=== PATIENT | female | born 1940 | race Caucasian/White ===

== ENCOUNTER 2017-04-26 08:46 | Day surgery (SDC) | payer MEDICARE ==
[~2017-04-26 08:46] MED LIST: RINGERS SOLUTION,LACTATED 1,000 ML IV PRN
[2017-04-26] MEDS ORDERED: RINGERS SOLUTION,LACTATED 1,000 ML IV ONE (09:17)
--- OUTSIDE RECORDS SUMMARY | 2017-04-26 11:33 | XMS REPORT | Continuity of Care Document ---
:1940 Author Organization [facility] ([facility]) Address [address] [place] [address] Phone [phone] Care Team Providers Name Role Phone Trey Oliveira Primary Care Provider [phone] Source Comments This disclosure is being made pursuant to the Care Everywhere program, applicable federal and state laws, and may not contain all informaitonavailable regarding this patient.[facility] ([facility]) Active Allergies and Adverse Reactions No Known Allergies Current Medications Prescription Sig. Disp. Refills Start Date End Date Status CALCIUM CITRATE/VITAMIN Take by mouth 2 Active D3 (CITRACAL + D PO) times daily. ALENDRONATE 70 mg 12/25/2014 Active tablet ATORVASTATIN 10 mg 01/27/2015 Active tablet tamoxifen 20 mg tablet Take 1 tablet (20 90 tablet 11 02/20/2017 Active mg total) by mouth daily. Active Problems Problem Noted Date Malignant neoplasm of right breast 06/08/2015 Routine gynecological examination 09/30/2005 Most Recent Encounters Date Type Specialty Providers Description 02/20/2017 Refill Med Hematology and KarTomasz willson MD Dx: Malignant neoplasm Oncology of right female breast, unspecified site of breast (Primary Dx) Social History Tobacco Use Types Packs/Day Years Used Date Never Smoker Smokeless Tobacco: Never Used Alcohol Use Drinks/Week oz/Week Comments No Last Filed Vital Signs Vital Sign Reading Time Taken Blood Pressure 126/72 06/06/2016 10:47 AM CDT Pulse 64 06/06/2016 10:47 AM CDT Temperature 36.6 C (97.9 F) 06/06/2016 10:47 AM CDT Respiratory Rate 16 06/06/2016 10:47 AM CDT Height 1.745 m (5' 8.7") 10/26/2005 8:58 AM OPERATING ROOM REGISTERED NURSE Weight 64.592 kg (142 lb 6.4 oz) 06/06/2016 10:47 AM CDT Body Mass Index 21.21 06/06/2016 10:47 AM CDT Oxygen Saturation 95% 06/06/2016 10:47 AM CDT Plan of Care Health Maintenance Due Date Last Done Comments Hepatitis B Vaccine (1 of 3 1940 - Primary Series) Tdap Vaccine 1949 Td Vaccine 02/06/1956 Colonoscopy 1988 Zoster Vaccine 1998 Pneumococcal Vaccine (1 of 2 2003 - PCV13) Lipid Disorder Screening 08/01/2007 08/01/2002 Mammogram 10/12/2008 10/12/2007, Additional history exists 10/26/2005, 12/16/2003 Influenza Vaccine: Seasonal 06/27/2016 (#1) Osteoporosis Screening (DXA Completed 12/10/2002 Bone Density) Results from Last 3 Months Not on file
[2017-04-26] MEDS ORDERED: RINGERS SOLUTION,LACTATED 1,000 ML IV PRN (12:03)
[2017-04-26 13:33] VITALS: BP 159/88
--- NOTE | 2017-04-26 19:07 | OR ---
Operative Report - Dictated Report Narrative: OPERATIVE REPORT DATE OF OPERATION: 04/26/2017 PREOPERATIVE DIAGNOSIS: No recent dedicated colon studies POSTOPERATIVE DIAGNOSIS: Diverticulosis. Very redundant colon OPERATION: Colonoscopy SURGEON: Lincoln Oliveira MD ANESTHESIA: LULY Hernandez CRNA INDICATIONS FOR PROCEDURE: The patient is a 77-year-old female referred by Dr. Aly for colon surveillance. Her last colonoscopy was in 2006. There is no family history of colon cancer. The patient has a tendency to constipation. FINDINGS: Very redundant colon with technically difficult exam. Sigmoid diverticulosis NARRATIVE OF PROCEDURE: The patient was identified in the holding area, and prior to the administration of anesthetic, a multidisciplinary timeout was observed. With the patient in the left lateral position and after the administration of intravenous sedation, the perineum was inspected. There was no evidence of pilonidal disease or skin breakdown. The external appearance of the anus was normal. Sphincter tone was good. The flexible fiberoptic colonoscope was inserted into the rectum which was insufflated with air. The rectal mucosa and submucosal vascular pattern appeared normal, the prep was seen to be complete. The scope was advanced through the sigmoid colon which contained numerous large non-inflamed diverticular openings some of which were impacted with stool. The scope was advanced up the descending colon, and around the splenic flexure where the triangular haustral architecture of the transverse colon was seen. The scope was advanced across the transverse colon, around the hepatic flexure to the cecum, where the confluence of tenia and the ileocecal valve were identified. The mucosa at this level appeared normal. The scope was then slowly withdrawn in a circular fashion so that all aspects of colonic mucosa were inspected. The colon was very redundant in course requiring standard reduction maneuvers and external manual compression on the abdomen to reach the cecum. The haustral architecture appeared well preserved throughout with no evidence of external compression. The mucosa and submucosal vascular pattern appeared normal, specifically there was no gross evidence to suggest colitis or inflammatory bowel disease and no AV malformations were seen. The diverticulosis was moderate in degree and confined primarily to the sigmoid colon. No polyps were encountered. The scope was gradually withdrawn to the level of the rectum. As much insufflated air as possible was removed. The scope was withdrawn from the patient and the procedure terminated. The patient tolerated the anesthetic and procedure well without complication and was transferred back to the ambulatory surgery area awake and in stable condition. The patient remained stable throughout a period of postoperative observation. She denied abdominal discomfort, was able to tolerate by mouth intake, and was up without assistance. I shared the operative findings with the patient and she was given copies of the photographs which appear in the medical record. She was discharged home with instructions not to engage in hazardous activity today , but may resume normal activity tomorrow, and advance diet as tolerated. She is to continue those medications as listed in the history and physical exam. Reviewed and electronically signed
== END 2017-04-26 08:47 | disposition home or self-care (01) ==
LOC: AMB 08:46
PROVIDERS: ATTEND Surgery
PROC: 0DJD8ZZ Inspection of Lower Intestinal Tract, Via Natural or Artificial Opening Endoscopic (ICD-10-PCS; principal; 2017-04-26 10:50)
DX: Z12.11 Encounter for screening for malignant neoplasm of colon (principal); K57.30 Diverticulosis of large intestine without perforation or abscess without bleeding; E78.5 Hyperlipidemia, unspecified; M81.0 Age-related osteoporosis without current pathological fracture; Z68.20 Body mass index [BMI] 20.0-20.9, adult

== ENCOUNTER 2017-10-14 17:27 | Inpatient (IN) | payer MEDICARE ==
[2017-10-14] MEDS ORDERED: DILTIAZEM HCL 5 MG/ML VIAL IV ONE ×2 (17:37→17:48)
[2017-10-14] MEDS ORDERED: ASPIRIN 325 MG TABLET.DR PO ONE (17:38)
[2017-10-14] MEDS ORDERED: ASPIRIN 81 MG TAB.CHEW ONE (17:50)
[2017-10-14] MEDS ORDERED: ASPIRIN 81 MG TAB.CHEW PO ONE (17:51)
[2017-10-14 17:55] LABS: Hematocrit 38.9 % (37.0-47.0); Mean Cell Volume 92.4 fl (78-100); Mean Corpuscular Hemoglobin 30.9 pg (27-31); Mean Corpuscular Hgb Conc 33.4 g/dl (32-36); Mean Platelet Volume 9.3 fl (6.0-9.5); Neutrophil # 3.8 K/mm3 (1.3-6.0); Neutrophil % 61.5 % (42-75.0); Platelet Count 225 K/mm3 (150-450); Red Blood Count 4.21 M/mm3 (4.2-5.4); Red Cell Distribution Width 12.7 % (11.5-14.0); White Blood Count 6.1 K/mm3 (4.0-10.5)
[2017-10-14] MEDS: DILTIAZEM HCL 125 MG in DEXTROSE 5 % IN WATER 100 ML IV PRN ×2 (18:00)
[2017-10-14 18:17] LABS: BUN/Creatinine Ratio 19.2 (9.0-21.6)
[2017-10-14 18:18] LABS: Albumin * 3.1 gm/dl (3.4-5.0); Anion Gap 13.5 mmol/L (6.8-13.8); Bilirubin, Total 0.2 mg/dL (0.0-1.1); Ca. Corrected For Albumin 8.6 mg/dL (8.4-10.2); Calcium * 8.2 mg/dL (7.9-10.9); Carbon Dioxide 26.7 mmol/L (24-32.6); Magnesium 2.1 mg/dL (1.2-2.8); Potassium 4.2 mmol/L (3.4-4.6); TSH * 2.071 uIU/mL (0.358-3.74); Total Protein 5.9 gm/dL (6.2-8.2); Troponin I 0.036 ng/ml (0.00-0.10)
[2017-10-14] MEDS ORDERED: FUROSEMIDE 10 MG/ML VIAL IV ONE (18:53)
[2017-10-14] MEDS ORDERED: FUROSEMIDE 10 MG/ML VIAL ONE (18:56)
--- NOTE | 2017-10-14 19:43 | ERNOTE ---
Dyspnea - Date Date of Service: 10/14/17 - General Presenting Symptoms: shortness of breath Time Seen by Provider: 10/14/17 17:32 Source: patient Exam Limitations: no limitations - Immun/Allergies/Home Medications Immunizations: IMMUNIZATION HX Immunizations Up to Date No History of Influenza Vaccine No Hx Pneumococcal Vaccination No Allergies/Adverse Reactions: Allergies No Known Allergies Allergy (Verified 10/14/17 17:48) Home Medications: HOME MEDICATIONS Alendronate Sodium [Fosamax] 70 mg PO Q7D #0 tablet 06/27/14 [Last Taken Unknown ] Cholecalciferol (Vitamin D3) [Vitamin D3] 2,000 unit PO DAILY 03/12/15 [Last Taken Unknown] Glucosam/Chondr/Collagn/Hyalur [Glucosamine & Chondroitin Cap] 1 cap PO DAILY [Last Taken Unknown] Magnesium 250 mg PO DAILY 03/12/15 [Last Taken Unknown] Tamoxifen Citrate 20 mg PO DAILY 01/16/16 [Last Taken Unknown] Aspirin [Aspirin EC] 81 mg PO DAILY 04/04/17 [Last Taken Unknown] Nutrition Shake 12 oz PO DAILY 04/04/17 [Last Taken Unknown] - History of Present Illness Narrative: Patient presents to the ED for SOB. She had been fatigued for a few days. Last night she noticed she was feeling SOB. She has noted SOB with exertion and even at rest since then. no chest pain. She had never had anything like this before so she came to the ED. No calf pain or leg swelling. no fever. Mild cough. She does not not feel palpitations but feels like it is herd for her to breath. Severity: moderate Initiating event: Reports: none Frequency of episodes: Reports: no prior episodes Modifying Factors - (Improves): Reports: nothing Modifying Factors (Worsens): Reports: activity Associated Symptoms-Dyspnea: Reports: cough. Denies: fever/chills, chest pain/ discomfort, palpitations, leg/calf pain Prior Treatment: Denies: recently seen Review of Systems - Review of Systems Constitutional: Absent: fever Respiratory: Present: shortness of breath Cardiology: Absent: palpitations Gastrointestinal/Abdominal: Absent: abdominal pain Genitourinary: Absent: dysuria All Other Systems: All systems neg except as marked - Patient's Past Medical History Patient History - Medical: Anxiety, GERD, Glaucoma, Osteoporosis Patient History - Cardiac/Respiratory: No pertinent hx Patient History - Cancer: Breast, Melanoma, Surgical Treatment Patient History - Surgical Procedures: Cataracts, Colonoscopy, D & C, EGD, T & A , Other Patient History - Other: None LMP (females 10-50): post - Family History Brother Family History - Medical: Other Family History - Cardiac/Respiratory: No pertinent hx Family History - Cancer: Esophageal Father Family History - Medical: , No pertinent hx Family History - Cardiac/Respiratory: No pertinent hx Family History - Cancer: Bone, Metatastic, Prostate Mother Family History - Medical: , Alzheimer's Disease Family History - Cardiac/Respiratory: No pertinent hx Family History - Cancer: Breast Sister Family History - Medical: Other Family History - Cardiac/Respiratory: No pertinent hx Family History - Cancer: No pertinent family hx - Social History Living Situations: home Abuse History: No History of abuse Psych History: No pertinent hx Smoking Status: Never smoker Alcohol Use: none Drug Use: none - Immunizations Immunizations Up to Date: No Hx Pneumococcal Vaccination: No History of Influenza Vaccine: No Physical Exam - Physical Exam General Appearance: Present: alert, no apparent distress Head Exam: Present: normal inspection, no evidence of injury Eye Exam: Normal inspection: bilateral, PERRL: bilateral Ears, Nose, Throat: Present: normal ENT inspection Neck: Present: normal inspection Respiratory: Present: no respiratory distress, no accessory muscle use, crackles , rales, other - in the bases Cardiovascular/Chest: Present: normal peripheral pulses, tachycardia, irregularly irregular Gastrointestinal/Abdominal: Present: normal bowel sounds, nontender, nondistended, soft Back Exam: Present: normal range of motion Extremity Exam: Present: normal inspection, non-tender, other - no findings of DVT Neurological Exam: Present: alert, normal mood/affect, no motor/sensory deficits Skin Exam: Present: normal color, warm/dry ED Progress - Results and Orders Patient's Lab Results:: I have reviewed the patient's lab results. - Vital Signs Patient's Vital Signs:: I have reviewed the patient's vital signs. Vital Signs: Vital Signs 10/14/17 10/14/17 10/14/17 17:30 17:49 17:57 Temperature 37.1 C Pulse Rate 155 H 157 H 113 H Respiratory 26 H 24 H Rate Blood Pressure 151/79 151/79 154/98 O2 Sat by Pulse 90 88 L Oximetry 10/14/17 10/14/17 10/14/17 18:00 18:06 18:16 Temperature Pulse Rate 148 H 126 H 130 H Respiratory 20 20 Rate Blood Pressure 154/98 137/89 117/90 O2 Sat by Pulse 91 91 Oximetry 10/14/17 10/14/17 10/14/17 18:25 18:28 18:37 Temperature Pulse Rate 158 H 136 H 144 H Respiratory 22 H 18 Rate Blood Pressure 115/82 123/81 O2 Sat by Pulse 93 92 Oximetry 10/14/17 10/14/17 10/14/17 18:45 18:55 18:59 Temperature Pulse Rate 133 H 124 H 132 H Respiratory 18 20 Rate Blood Pressure 135/81 113/78 113/78 O2 Sat by Pulse 92 91 Oximetry 10/14/17 10/14/17 19:06 19:17 Temperature Pulse Rate 130 H 133 H Respiratory 16 18 Rate Blood Pressure 120/84 123/77 O2 Sat by Pulse 92 92 Oximetry - EKG EKG: atrial fibrillation EKG read: Interp. by me EKG Comments: A fib RVR. Non-specific ST/T wave changes, no STEMI - X-Ray X-Ray #1 Interpretation: Interp. by me X-ray Comments: I reviewed official radiology report - Progress/Reassessment Chief Complaint: Dyspnea Progress Note-Subjective: 10/14/17 19:41 IV cardizem and IV cardizem drip initiated. IV lasix given. D/W Graham who was solution designer for hospitalist, she saw the patient in the ED and patient will be admitted. 10/14/17 19:42 Patient agreeable. Departure Clinical Impression: Atrial fibrillation with RVR, CHF (congestive heart failure) - Departure Disposition: [facility] Condition: Stable
--- NOTE | 2017-10-14 20:02 | HP ---
Chief Complaint - Chief Complaint Date of Service: 10/14/17 Time of Service: 20:02 Chief Complaint: " Could not breath well at night". Source of HPI- Pt; reliable , ERP provider. History of Present Illness: Mrs. Strong is a 77-yr-old WF pt of Dr. Elina Aly with a PMH of: Anxiety, Breast Ca, Glaucoma, HLD & Osteoporosis. Pt states the for the last 1 week, she has felt that she cannot breath during sleep. She reports also feeling tired within the 1 week and feels like she 'has to take a nap all the time, even without being physically active during the day.' Last night she could barely sleep due to inability to catch her breath and finally chose to come to the ED. She states that she has a lot more difficulty sleeping on her back. She denies associated symptoms of coughing, chest pain, and palpitations and SUAZO. She also denies fever and chills.At the ED, the CXR showed pulmonary vascular congestion concerning for CHF, along with Bilat. Pleural effusions. Laboratory studies were mostly unremarkable except for BNP of 4705. The ECG showed A-fib with RVR in 150s and was given Diliazem IV 20 mg & the drip was initiated at the ED which controlled her HR to 130s. She required 02 supplementation due to POX of 88% RA. Physical exam reveals Rales on Robert. Bases and BLE peripheral edema of 1-2 +. She diuresed 400ml with Lasix 40 mg IV at the ED. Pt will need to need admitted inpatient due to: New Onset A-fib with symptoms of Heart Failure and hypoxia & Bilateral pleural effusion. - Patient's Past Medical History Patient History - Medical: Anxiety, GERD, Glaucoma, Osteoporosis Patient History - Cardiac/Respiratory: No pertinent hx Patient History - Cancer: Breast, Melanoma, Surgical Treatment Patient History - Surgical Procedures: Cataracts, Colonoscopy, D & C, EGD, T & A , Other Patient History - Other: None LMP (females 10-50): post - Family History Brother Family History - Medical: Other Family History - Cardiac/Respiratory: No pertinent hx Family History - Cancer: Esophageal Father Family History - Medical: , No pertinent hx Family History - Cardiac/Respiratory: No pertinent hx Family History - Cancer: Bone, Metatastic, Prostate Mother Family History - Medical: , Alzheimer's Disease Family History - Cardiac/Respiratory: No pertinent hx Family History - Cancer: Breast Sister Family History - Medical: Other Family History - Cardiac/Respiratory: No pertinent hx Family History - Cancer: No pertinent family hx - Social History Living Situations: home Abuse History: No History of abuse Psych History: No pertinent hx Smoking Status: Never smoker Alcohol Use: none Drug Use: none - Immunizations Immunizations Up to Date: No Hx Pneumococcal Vaccination: No History of Influenza Vaccine: No Review Of Systems (GEN) - Review of Systems Generalized/Overall Review: Present: Weakness. Absent: Chills, Fever, Malaise EENTM: Absent: Eye Pain, Blurred Vision Respiratory: Present: Orthopnea. Absent: Cough, Shortness of Breath, Stridor Cardiac: Present: Edema. Absent: Chest Pain, Palpitations, Syncope Abdominal: Absent: Nausea, Vomiting, Hematemesis, Constipation Genitourinary: Absent: Burning, Itching, Urgency Musculoskeletal: Absent: Joint Pain, Back Pain, Joint Swelling Neurological: Absent: Headache, Anxiety, Depressed Skin: Absent: Dryness, Lesions, Lumps, Change in Color Endocrine: Absent: Intolerance to Cold Misc: All systems neg except as marked Immunizations: IMMUNIZATION HX Immunizations Up to Date No History of Influenza Vaccine No Hx Pneumococcal Vaccination No Allergies/Adverse Reactions: Allergies Allergy/AdvReac Type Severity Reaction Status Date / Time No Known Allergies Allergy Verified 10/14/17 17:48 Home Medications: HOME MEDICATIONS Alendronate Sodium [Fosamax] 70 mg PO Q7D #0 tablet 06/27/14 [Last Taken Unknown ] Cholecalciferol (Vitamin D3) [Vitamin D3] 2,000 unit PO DAILY 03/12/15 [Last Taken Unknown] Glucosam/Chondr/Collagn/Hyalur [Glucosamine & Chondroitin Cap] 1 cap PO DAILY [Last Taken Unknown] Magnesium 250 mg PO DAILY 03/12/15 [Last Taken Unknown] Tamoxifen Citrate 20 mg PO DAILY 01/16/16 [Last Taken Unknown] Aspirin [Aspirin EC] 81 mg PO DAILY 04/04/17 [Last Taken Unknown] Nutrition Shake 12 oz PO DAILY 04/04/17 [Last Taken Unknown] Exam - Exam Vital Signs: Vital Signs - Last Taken Temp 37.1 C 10/14/17 19:45 Pulse 148 H 10/14/17 19:45 Resp 20 10/14/17 19:45 BP 130/91 10/14/17 19:45 Pulse Ox 94 10/14/17 19:45 Constitutional: Present: Alert, Oriented x3, Cooperative, No distress ENT Exam: Present: normal ENT inspection, dry mucous membranes Eye Exam: bilateral eye: normal inspection, PERRL Neck: Present: non-tender, full range of motion, supple Back Exam: Present: normal inspection, no CVA tenderness Breasts: Present: Exam deferred Respiratory: Present: rales - Robert. Bases Cardiovascular/Chest: Present: no murmur, irregularly irregular Abdomen: Present: Normal bowel sounds, soft, nontender /Rectal: Present: Exam deferred Extremity: Present: normal range of motion, pedal edema Skin Exam: Present: warm/dry, no cyanosis Lymphatic: Present: no adenopathy Neurologic: Present: alert, normal mood/affect, oriented x 3 Appearance: Present: appropriate appearance, appropriate insight Eye contact: Present: cooperative, good eye contact, normal speech Thoughts: Present: normal thought pattern, no apparent hallucination Diagnostic Studies: Laboratory Results WBC 6.1 K/mm3 (4.0-10.5) 10/14/17 17:43 RBC 4.21 M/mm3 (4.2-5.4) 10/14/17 17:43 Hgb 13.0 gm/dL (12.5-16.0) 10/14/17 17:43 Hct 38.9 % (37.0-47.0) 10/14/17 17:43 MCV 92.4 fl (78-100) 10/14/17 17:43 MCH 30.9 pg (27-31) 10/14/17 17:43 MCHC 33.4 g/dl (32-36) 10/14/17 17:43 RDW 12.7 % (11.5-14.0) 10/14/17 17:43 Plt Count 225 K/mm3 (150-450) 10/14/17 17:43 MPV 9.3 fl (6.0-9.5) 10/14/17 17:43 Immature Gran % (Auto) 0.30 % (0.001-0.429) 10/14/17 17:43 Immature Gran # (Auto) 0.02 K/mm3 (0.000-0.0310) 10/14/17 17:43 Neutrophils % 61.5 % (42-75.0) 10/14/17 17:43 Lymphocytes % 23.5 % (20-51) 10/14/17 17:43 Monocytes % 10.9 % (0.0-9) H 10/14/17 17:43 Eosinophils % 3.1 % (0.0-3.0) H 10/14/17 17:43 Basophils % 0.7 % (0.0-1.0) 10/14/17 17:43 Nucleated RBC % 0.0 k/mm3 (0-1) 10/14/17 17:43 Neutrophils # 3.8 K/mm3 (1.3-6.0) 10/14/17 17:43 Lymphocytes # 1.4 k/mm3 (1.5-3.5) L 10/14/17 17:43 Monocytes # 0.7 k/mm3 (0.0-1.0) 10/14/17 17:43 Eosinophils # 0.2 k/mm3 (0.0-0.7) 10/14/17 17:43 Absolute Basophils 0.0 k/mm3 (0.0-0.1) 10/14/17 17:43 Sodium 144 mmol/L (132-142) H 10/14/17 17:43 Plasma Sodium 144 mmol/L (130-142) H 10/14/17 17:43 Potassium 4.2 mmol/L (3.4-4.6) 10/14/17 17:43 Chloride 108 mmol/L (97-106) H 10/14/17 17:43 Carbon Dioxide 26.7 mmol/L (24-32.6) 10/14/17 17:43 Anion Gap 13.5 mmol/L (6.8-13.8) 10/14/17 17:43 BUN 19 mg/dL (3-23) 10/14/17 17:43 Creatinine 0.99 mg/dL (0.4-1.4) 10/14/17 17:43 Est GFR (Non-Af Amer) 58 mL/min (60-130) L D 10/14/17 17:43 BUN/Creatinine Ratio 19.2 (9.0-21.6) 10/14/17 17:43 Random Glucose 97 mg/dL (70-110) 10/14/17 17:43 Calcium 8.2 mg/dL (7.9-10.9) 10/14/17 17:43 Calcium Adj for Albumin 8.6 mg/dL (8.4-10.2) 10/14/17 17:43 Magnesium 2.1 mg/dL (1.2-2.8) 10/14/17 17:43 Total Bilirubin 0.2 mg/dL (0.0-1.1) 10/14/17 17:43 AST 27 U/L (0-48) 10/14/17 17:43 ALT 30 U/L (19-67) 10/14/17 17:43 Alkaline Phosphatase 45 U/L (50-170) L 10/14/17 17:43 Troponin I 0.036 ng/ml (0.00-0.10) 10/14/17 17:43 B-Natriuretic Peptide 4705 pg/mL (5-550) H 10/14/17 17:43 Total Protein 5.9 gm/dL (6.2-8.2) L 10/14/17 17:43 Albumin 3.1 gm/dl (3.4-5.0) L 10/14/17 17:43 TSH 2.071 uIU/mL (0.358-3.74) 10/14/17 17:43 Assessment/Plan - Assessment/Plan (1) New onset a-fib Assessment: Pt presented with A-fib with unknown duration. Noted to have RVR in 150s and diltiazem 20mg and gtt initiated at the ED which controlled HR to the 130s. Will continue with the drip for a target HR of <100-110. Will be admitted under closed monitoring unit. Add digoxin 0.25mg q hours. CXR shows normal cardiac size. Will need an Echocardiogram to check to cardiac abnormalities. Plan to do this on Monday. Will need oral anticoagulation at discharge. According to CHADS2 Score, she has an intermediate risk for a thromboembolic event and 4 % risk if no coumadin. Is covered for now with Heparin for VTE prophylaxis. Problem: Acute (2) Pleural effusion Assessment: Has Robert. Pleural effusion on CXR. likely brought for by CHF. Will treat conservatively with diuretics. Problem: Acute (3) Congestive heart failure Assessment: Has clinical signs of CHF: increased vascular congestion on CXR, elevated BNP,& Peripheral Edema. Will continue diuresing with Lasix. Plan for Echo on Monday. Monitor electrolytes and fluid volume status and will determine daily lasix dose. Problem: Suspected Qualifiers: Congestive heart failure type: diastolic (4) Anxiety Problem: Chronic (5) Osteoporosis Assessment: Stable- Alendronate. Problem: Chronic (6) Breast CA Assessment: Stable - On tamoxifen Problem: Chronic
[2017-10-14] MEDS: DIGOXIN 0.25 MG/ML AMPUL IV SCH (21:13)
[2017-10-14] MEDS: HEPARIN SODIUM,PORCINE 5,000 UNITS/ML VIAL SC SCH (22:34)
--- NOTE | 2017-10-14 22:56 | PN ---
Progess Note - Interim Narrative: 10/14/17 22:47 India Strong is a 77-year-old WF with a history of RT lumpectomy for breast cancer[2015], malignant melanoma [right lower leg-2008], osteoporosis, anxiety, glaucoma who came into the ER for evaluation of SOB and difficulty in breathing which was gradually worsening for the last 2 days. She was found to be in CHF and had new onset A. fib with RVR with a rate between 140-160/m. Patient was started on diltiazem drip, IV Lanoxin and given furosemide 40 mg IV in the ER and admitted for further care and treatment. Significant labs: BNP 4705; troponin I 0.036, GFR 58. EKG A. fib with RVR with nonspecific ST and T wave changes. CXR: "Correlate for CHF/fluid overload with bilateral pleural effusions and basilar consolidation felt to represent atelectasis. Clinically exclude pneumonia. There is diffuse parenchymal scarring. No pneumothorax. Scoliosis present. DJD and decreased bony mineralization. Discussed case with Anita Willett. Please see detailed H&P to be done by Anita Willett[[employer], hospitalist].
[2017-10-15] MEDS: DIGOXIN 0.25 MG/ML AMPUL IV SCH ×2 (02:22→07:24)
[2017-10-15] MEDS: DILTIAZEM HCL 125 MG in DEXTROSE 5 % IN WATER 100 ML IV PRN ×2 (02:45)
[2017-10-15 06:09] LABS: Albumin * 2.8 gm/dl (3.4-5.0); Anion Gap 8.3 mmol/L (6.8-13.8); BUN/Creatinine Ratio 18.8 (9.0-21.6); Bilirubin, Total 0.4 mg/dL (0.0-1.1); Ca. Corrected For Albumin 8.3 mg/dL (8.4-10.2); Calcium * 7.7 mg/dL (7.9-10.9); Carbon Dioxide 29.2 mmol/L (24-32.6); Potassium 3.5 mmol/L (3.4-4.6); Total Protein 5.6 gm/dL (6.2-8.2)
--- NOTE | 2017-10-15 06:37 | PN ---
Subjective - Date and Time Seen Date: 10/15/17 Time: 06:31 Subjective Narrative: Pt seen this am. States she felt a lot better with her breathing during the night. Has been weaned off Oxygen from 3 L to RA. Diuresed about 1750ml with Lasix 40mg IV. Still in a a-fib and HR was controlled to the 120s with the Diltiazem. Objective - Vitals Vitals: Last Vital Signs Temp 36.5 C 10/15/17 06:27 Pulse 106 H 10/15/17 06:27 Resp 18 10/15/17 06:27 BP 110/62 10/15/17 06:27 Pulse Ox 91 10/15/17 06:27 - Abnormal Lab Findings Abnormal Lab Findings: Abnormal Lab Results 10/15/17 Range/Units 05:40 Chloride 108 H (97-106) mmol/L Calcium 7.7 L (7.9-10.9) mg/dL Calcium Adj for Albumin 8.3 L (8.4-10.2) mg/dL Alkaline Phosphatase 43 L (50-170) U/L Total Protein 5.6 L (6.2-8.2) gm/dL Albumin 2.8 L (3.4-5.0) gm/dl - Exam Constitutional: Present: Alert, Oriented x3, Cooperative, No distress ENT Exam: Present: normal ENT inspection Neck: Present: non-tender, full range of motion Breasts: Present: Exam deferred Respiratory: Present: lungs clear, No rales Cardiovascular/Chest: Present: no edema, irregularly irregular Abdomen: Present: Normal bowel sounds, soft, nontender /Rectal: Present: Exam deferred Extremity: Present: normal range of motion Skin Exam: Present: warm/dry, no cyanosis Lymphatic: Present: no adenopathy Neurologic: Present: alert, normal mood/affect, oriented x 3 Appearance: Present: appropriate appearance, appropriate insight Eye contact: Present: cooperative, good eye contact, normal speech Thoughts: Present: normal thought pattern, no apparent hallucination Assessment/Plan - Problems/Diagnosis (1) New onset a-fib Problem: Acute Narrative: Pt presented with A-fib with unknown duration. Noted to have RVR in 150s and diltiazem 20mg and gtt initiated at the ED which controlled HR to the 130s. Will continue with the drip for a target HR of <100-110. Will be admitted under closed monitoring unit. Add digoxin 0.25mg q hours. CXR shows normal cardiac size. Will need an Echocardiogram to check to cardiac abnormalities. Plan to do this on Monday. Will need oral anticoagulation at discharge. According to CHADS2 Score, she has an intermediate risk for a thromboembolic event and 4 % risk if no coumadin. Is covered for now with Heparin for VTE prophylaxis. (2) Pleural effusion Problem: Acute Narrative: Has Robert. Pleural effusion on CXR. likely brought for by CHF. Will treat conservatively with diuretics. (3) Congestive heart failure Problem: Suspected Qualifiers: Congestive heart failure type: diastolic Narrative: Has clinical signs of CHF: increased vascular congestion on CXR, elevated BNP,& Peripheral Edema. Will continue diuresing with Lasix. Plan for Echo on Monday. Monitor electrolytes and fluid volume status and will determine daily lasix dose. (4) Anxiety Problem: Chronic (5) Osteoporosis Problem: Chronic (6) Breast CA Problem: Chronic
[2017-10-15] MEDS: ASPIRIN 81 MG TABLET.DR PO SCH (08:30)
[2017-10-15] MEDS: MAGNESIUM OXIDE 400 MG TABLET PO SCH (08:30)
[2017-10-15] MEDS: TAMOXIFEN CITRATE 10 MG TABLET PO SCH (08:31)
[2017-10-15] MEDS: [UNRECOGNIZED DRUG - OTHER] PO SCH (08:31)
[2017-10-15] MEDS: CHOLECALCIFEROL 1,000 UNIT CAPSULE PO SCH (08:31)
[2017-10-15] MEDS: CHONDR PO SCH (08:40)
[2017-10-15] MEDS: GLUCOSAM PO SCH (08:40)
[2017-10-15] MEDS: HYALUR PO SCH (08:40)
[2017-10-15] MEDS: [UNRECOGNIZED DRUG - OTHER] PO SCH (08:40)
[2017-10-15] MEDS ORDERED: AMIODARONE HCL 150 MG in DEXTROSE 5 % IN WATER 100 ML IV ONE ×2 (09:00)
[2017-10-15] MEDS ORDERED: FUROSEMIDE 10 MG/ML VIAL IV SCH (09:00)
[2017-10-15] MEDS: AMIODARONE HCL 900 MG in DEXTROSE 5 % IN WATER 500 ML IV SCH ×2 (09:28)
[2017-10-15] MEDS: HEPARIN SODIUM,PORCINE 5,000 UNITS/ML VIAL SC SCH ×2 (10:39→21:12)
[2017-10-15] MEDS: AMIODARONE HCL 200 MG TABLET PO SCH (13:56)
[2017-10-15] MEDS: POTASSIUM CHLORIDE 20 MEQ TABLET.SA PO SCH ×2 (13:57→16:34)
[2017-10-15] MEDS: WARFARIN SODIUM 5 MG TABLET PO SCH ×2 (16:34→17:23)
[2017-10-16] MEDS: AMIODARONE HCL 200 MG TABLET PO SCH (08:11)
[2017-10-16] MEDS: CHONDR PO SCH (08:12)
[2017-10-16] MEDS: ASPIRIN 81 MG TABLET.DR PO SCH (08:12)
[2017-10-16] MEDS: TAMOXIFEN CITRATE 10 MG TABLET PO SCH (08:12)
[2017-10-16] MEDS: MAGNESIUM OXIDE 400 MG TABLET PO SCH (08:12)
[2017-10-16] MEDS: GLUCOSAM PO SCH (08:12)
[2017-10-16] MEDS: HYALUR PO SCH (08:12)
[2017-10-16] MEDS: CHOLECALCIFEROL 1,000 UNIT CAPSULE PO SCH (08:12)
[2017-10-16] MEDS: [UNRECOGNIZED DRUG - OTHER] PO SCH (08:12)
[2017-10-16] MEDS ORDERED: AMIODARONE HCL 200 MG TABLET PO ONE (08:42)
[2017-10-16] MEDS: AMIODARONE HCL 900 MG in DEXTROSE 5 % IN WATER 500 ML IV SCH ×2 (09:42)
[2017-10-16] MEDS: HEPARIN SODIUM,PORCINE 5,000 UNITS/ML VIAL SC SCH (10:02)
[2017-10-16] MEDS: METOPROLOL TARTRATE 25 MG TABLET PO SCH ×2 (10:15→17:23)
[2017-10-16] MEDS: DILTIAZEM HCL 30 MG TABLET PO SCH ×2 (10:15→16:15)
[2017-10-16 12:03] LABS: Prothrombin Time (Patient) 10.3 Seconds (9.0-11.0)
[2017-10-16 12:11] LABS: INR 1.03 INR (0.90-1.10)
[2017-10-16] MEDS: [UNRECOGNIZED DRUG - OTHER] PO SCH (12:27)
[2017-10-16 15:30] VITALS: BP 122/75
[2017-10-16] MEDS: WARFARIN SODIUM 5 MG TABLET PO SCH (16:15)
--- NOTE | 2017-10-16 18:00 | DS ---
(1) Atrial fibrillation with RVR Problem: Acute (2) CHF (congestive heart failure) Problem: Acute Qualifiers: Congestive heart failure type: diastolic Congestive heart failure chronicity: acute Qualified Code(s): I50.31 - Acute diastolic (congestive) heart failure (3) Anxiety Problem: Chronic (4) Breast CA Diagnosis(s): S/P RT lumpectomy. Problem: Chronic Qualifiers: Patient sex: female Laterality: right (5) Osteoporosis Problem: Chronic Description of Stay: DATE OF ADMISSION: 10/14/17. DATE OF DISCHARGE: 10/16/17. DIAGNOSTICS: 2-D ECHOCARDIOGRAM. 10/16/17. DISCHARGE SUMMARY: India Strong is a 77-year-old WF with a history of RT lumpectomy for breast cancer[2014], malignant melanoma [right lower leg-2008], osteoporosis, anxiety, glaucoma who came into the ER for evaluation of SOB and difficulty in breathing present for the last 1 week, worse for the last 2 days. Patient was found to be in congestive heart failure and A. fib with RVR with a rate of 140- 160/m. Patient required O2 initially has as her sats were 88% on RA and she was weaned off O2. She had crackles on exam and 1-2+ edema. She was treated with furosemide 40 mg IV, Lanoxin IV in the ER and started on a diltiazem drip. Significant labs were BNP 4705, troponin I 0.036, GFR 58. TSH 2.071. MG 2.1. EKG A. fib with RVR with nonspecific ST and T wave changes. CXR: "Correlate for CHF/fluid overload with bilateral pleural effusions and basilar consolidation felt to represent atelectasis. Clinically exclude pneumonia. There is diffuse parenchymal scarring. No pneumothorax. Scoliosis present. DJD and decreased bony mineralization. Patient continued to remain in Afib w/ 140/min - 150/min w/minimal activity on 10/15/17 in spite of remaining on a diltiazem drip for more than 12 hours. This was discontinued at approximately 9 AM and was bolused with amiodarone 150 mg IV followed by a drip. 24 hours later patient remained in A. fib with a controlled rate of 100-110/m. She was started on metoprolol 25 mg every 8 hours and diltiazem 45 mg every 6 hours. Patient converted to NSR after the first dose of metoprolol and diltiazem were given. She was started on warfarin and long-acting diltiazem 240 mg at bedtime. She underwent an echocardiogram which showed mild LVH with EF 65%, hyperdynamic LV, LV size -NL, RVSP 33.6 mmHg. Patient was discharged in a stable condition and to follow-up with PCP in 3-5 days. PT/INR to be followed up with pharmacy. [Greater than 30 minutes was spent in discussing plan of care with patient; discharge planning, reconciliation of medications, preparing and dictating discharge summary]. Procedures Performed: none Results and Findings: Laboratory Tests 10/14/17 17:43 WBC 6.1 Hgb 13.0 Hct 38.9 Plt Count 225 10/14/17 10/15/17 17:43 05:40 Plasma Sodium 144 H 142 Potassium 4.2 3.5 Chloride 108 H 108 H Carbon Dioxide 26.7 29.2 BUN 19 16 Creatinine 0.99 0.85 Est GFR (Non-Af Amer) 58 L D 69 Random Glucose 97 104 Calcium Adj for Albumin 8.6 8.3 L Magnesium 2.1 2.0 Total Bilirubin 0.2 0.4 AST 27 21 ALT 30 26 Alkaline Phosphatase 45 L 43 L Total Protein 5.9 L 5.6 L Albumin 3.1 L 2.8 L TSH 2.071 10/14/17 17:43 Troponin I 0.036 B-Natriuretic Peptide 4705 H Discharge Disposition: Home self care Disposition: Home self-care Condition: Undetermined Discharge Activity: Activity as tolerated Discharge Diet: Low salt, High Fiber Referrals: Elina Aly DO [Primary Care Provider] - Problem Oriented Discharge Instructions to Patient/Family: Atrial Fibrillation , [id number] Additional Patient Instructions (free text): Please make TCM appointment at discharge, if applicable. Thank you! Amaris @ [phone]. see on monday10/18/17 with PT/INR. New medications: Amiodarone 200 mg daily in a.m. Diltiazem CD/ER 240 mg at bedtime. Warfarin 5 mg daily at 1800 hrs. PT/INR on Monday10/18/17 1 hour prior to seeing Dr. Aly. Prescriptions (Any new or edited meds): Amiodarone HCl [Cordarone] 200 mg PO DAILY #30 tablet Diltiazem HCl [Cardizem Cd] 240 mg PO DAILY@1999 #30 cap.sr.24h Warfarin Sodium [Coumadin] 5 mg PO DAILY@1700 #30 tablet Complete Home Medications List: Complete Home Medication List: Alendronate Sodium [Fosamax] 70 mg PO Q7D #0 tablet 06/27/14 Cholecalciferol (Vitamin D3) [Vitamin D3] 2,000 unit PO DAILY 03/12/15 Glucosam/Chondr/Collagn/Hyalur [Glucosamine & Chondroitin Cap] 1 cap PO DAILY Magnesium 250 mg PO DAILY 03/12/15 Tamoxifen Citrate 20 mg PO DAILY 01/16/16 Nutrition Shake 12 oz PO DAILY 04/04/17 Amiodarone HCl [Cordarone] 200 mg PO DAILY #30 tablet 10/16/17 Diltiazem HCl [Cardizem Cd] 240 mg PO DAILY@1999 #30 cap.sr.24h 10/16/17 Warfarin Sodium [Coumadin] 5 mg PO DAILY@1700 #30 tablet 10/16/17 Amb Orders for Discharge: Prothrombin Time Time Frame: 10/18/17, Location: Determined By Patient
--- NOTE | 2017-10-17 15:45 | ECHO ---
This report is available in the EMR
[2017-10-18] MEDS ORDERED: ALENDRONATE SODIUM 70 MG TABLET PO SCH (06:30)
== END 2017-10-16 19:08 | disposition home or self-care (01) | DRG 308 ==
LOC: ER 17:27 → SCU 19:27 → UNDOADMIN 19:27 → INTOOBSV 23:15 → OBSVTOIN 23:15 → SCU 23:15 → MS 10-16 14:15
PROVIDERS: ADMIT Nurse Practitioner; ATTEND Internal Medicine
PROC: B246ZZZ Ultrasonography of Right and Left Heart (ICD-10-PCS; principal; 2017-10-16)
DX: I48.91 Unspecified atrial fibrillation (principal); I50.31 Acute diastolic (congestive) heart failure; R09.02 Hypoxemia; F41.9 Anxiety disorder, unspecified; Z79.82 Long term (current) use of aspirin; Z85.3 Personal history of malignant neoplasm of breast; Z85.820 Personal history of malignant melanoma of skin

== ENCOUNTER 2020-06-02 10:44 | Observation (INO) ==
[2020-06-02] MEDS ORDERED: DIPHTH,PERTUSS(ACELL),TET VAC 0.5 ML VIAL IM ONE (10:57)
[2020-06-02 11:11] LABS: Hematocrit 34.4 % (37.0-47.0); Hemoglobin 10.5 gm/dL (12.5-16.0); Mean Cell Volume 86.6 fl (78-100); Mean Corpuscular Hemoglobin 26.4 pg (27-31); Mean Corpuscular Hgb Conc 30.5 g/dl (32-36); Mean Platelet Volume 8.8 fl (8-12.5); Neutrophil # 5.9 K/mm3 (1.3-6.0); Neutrophil % 80.3 % (42-75.0); Platelet Count 217 K/mm3 (150-450); Red Blood Count 3.97 M/mm3 (4.2-5.4); Red Cell Distribution Width 15.5 % (11.5-14.0); White Blood Count 7.4 K/mm3 (4.0-10.5)
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
[2020-06-02 11:40] LABS: Albumin * 3.4 gm/dl (3.4-5.0); Anion Gap 8.9 mmol/L (6.8-13.8); BUN/Creatinine Ratio 18.4 (9.0-21.6); Bilirubin, Total 0.3 mg/dL (0.0-1.1); Ca. Corrected For Albumin 9.1 mg/dL (8.4-10.2); Calcium * 8.9 mg/dL (7.9-10.9); Carbon Dioxide 28.2 mmol/L (24-32.6); Potassium 4.1 mmol/L (3.4-4.6); Total Protein 6.3 gm/dL (6.2-8.2)
[2020-06-02] MEDS ORDERED: LIDOCAINE HCL/EPINEPHRINE 30 ML VIAL IJ ONE (12:34)
[2020-06-02] MEDS ORDERED: ACETAMINOPHEN 325 MG TABLET PO ONE (13:33)
--- NOTE | 2020-06-02 16:44 | HP ---
Chief Complaint - Chief Complaint Date of Service: 06/02/20 Time of Service: 15:07 Chief Complaint: Fall History of Present Illness: 80-year-old female with a past medical history of atrial fibrillation on Xarelto, congestive heart failure, breast cancer, hyperlipidemia, chronic right knee pain, osteoporosis, mild cognitive impairment presents from home status post fall while rushing to get into her house. She states she tripped over the front steps and hit her head. She called her sister who came to help her up and she was brought to the emergency department. In the ER she was found to have hemoglobin of 10.5 and hematocrit of 34.4. Baseline hemoglobin runs 11.9-12.9. Bilateral leg x-rays were negative for fracture, CT chest showed no acute traumatic abnormality, cervical CT showed no cervical fracture, CT head showed a subtle minimally displaced fracture involving the superior medial left orbit extending into the adjacent floor of the left frontal sinus, associated fluid/hemorrhage within the left frontal sinus in addition to some associated supra orbital and periorbital gas on the left, small amount of dependent fluid/hemorrhage within the left maxillary sinus. She sustained two lacerations that were stitched/stapled up in the emergency department. Due to her history of Xarelto use and the low hemoglobin she was admitted for observation. Medical History (Last Reviewed 06/02/20 @ 15:31 by Shayla Azevedo RN) Paroxysmal atrial fibrillation (Chronic) CHF (congestive heart failure) (Chronic) Nausea & vomiting (Acute) Right knee injury (Acute) Onset Date: 11/2017 Pituitary adenoma (Chronic) Onset Date: Unknown Mild cognitive impairment (Chronic) Onset Date: Unknown Malignant melanoma of lower limb (Chronic) Onset Date: 2008 Hyperlipidemia (Chronic) Onset Date: Unknown Glaucoma (Chronic) Onset Date: Unknown Atrial fibrillation with RVR (Chronic) Onset Date: Unknown CHF (congestive heart failure) (Chronic) Onset Date: 01/02/18 New onset a-fib (Acute) Anxiety (Chronic) Onset Date: Unknown Osteoporosis (Chronic) Onset Date: Unknown Breast CA (Chronic) Onset Date: 01/15/15 Knee pain, right Onset Date: ~2017 Tibial plateau fracture, right Wrist fracture, left Onset Date: 10/12/18 Surgical History: Surgical History (Last Reviewed 06/02/20 @ 15:31 by Shayla Azevedo RN) H/O dilation and curettage Onset Date: ~1989 H/O esophagogastroduodenoscopy Onset Date: 12/16/10 with biopsy H/O right breast biopsy Onset Date: 01/23/152011 right core BX at 1800 position. Benign w/stromal fibrosis. '15 ultrasound guided breast BX- invasive ductal carcinoma. History of lumpectomy of right breast Onset Date: 03/17/15 History of surgical removal of [facility] History of tonsillectomy Onset Date: 1942 Hx of cataract surgery Onset Date: Unknown Hx of colonoscopy Onset Date: 04/26/17 hx of wrist surgery Onset Date: 2009 [facility] due to right fracture Family History: Family History (Last Reviewed 06/02/20 @ 15:32 by Shayla Azevedo RN) Brother Cancer esophageal Father Cancer prostate cancer with bone mets Mother Cancer breast Social History: (Last Reviewed 06/02/20 @ 15:32 by Shayla Azevedo RN) Social History: adopted: No foster care: No detention: No Marital status: / lives independently: Yes household members: none number of children: 0 caregiver/support person: No current occupational status: retired current occupation: retired Highest education level completed: Master's degree Sexually Active: No Service: No Tobacco: Smoking Status: Never smoker second hand exposure: No Smoking risk assessment performed?: No Alcohol: alcohol intake: never Substance Use: substance use type: does not use Dietary Habits: caffeine: Yes Type: coffee Review Of Systems (GEN) - Review of Systems Generalized/Overall Review: Absent: Fever EENTM: Present: Other - Left arm bruising and swelling Respiratory: Absent: Shortness of Breath Cardiac: Absent: Chest Pain Abdominal: Absent: Abdominal Pain Musculoskeletal: Present: Joint Pain - Right knee Skin: Present: Bruising - Bilateral upper and lower extremities Misc: All systems neg except as marked Immunizations: IMMUNIZATION HX Immunizations Up to Date Yes History of Influenza Vaccine Yes Hx Pneumococcal Vaccination No Allergies/Adverse Reactions: Allergies Allergy/AdvReac Type Severity Reaction Status Date / Time No Known Allergies Allergy Verified 06/02/20 14:50 Home Medications: HOME MEDICATIONS [place]-3 Fatty Acids/Fish Oil [Fish Oil 1,000 mg Capsule] 1 ea PO DAILY 11/16/17 [Last Taken Unknown] tamoxifen 20 mg tablet 20 mg PO DAILY 08/21/19 [Last Taken Unknown] diltiazem HCl 240 mg capsule,extended release 24 hr, controlled 240 mg PO DAILY@2000 #90 cap 04/16/20 [Last Taken 06/01/20] flecainide 100 mg tablet 100 mg PO BID #180 tab 04/16/20 [Last Taken 06/01/20] Calcium Carbonate 600 mg PO BID 06/02/20 [Last Taken Unknown] Cholecalciferol [Vitamin D] 2,000 unit PO DAILY 06/02/20 [Last Taken Unknown] Rivaroxaban [Xarelto] 20 mg PO .QSUPPER 06/02/20 [Last Taken Unknown] Exam - Exam Vital Signs: Vital Signs - Last Taken Temp 36.9 C 06/02/20 14:55 Pulse 70 06/02/20 14:55 Resp 18 06/02/20 14:55 BP 147/74 06/02/20 14:55 Pulse Ox 99 06/02/20 14:55 Constitutional: Present: Alert, Well developed, Well nourished, No distress, Elderly ENT Exam: Present: hearing grossly normal, moist mucous membranes Eye Exam: bilateral eye: eyelid inflammation - Ecchymosis and edema, eye swollen shut, left eye: normal inspection - Ecchymosis and edema, eye swollen shut, right eye: PERRL - Unable to assess left eye, EOMI - Unable to assess left eye Neck: Present: non-tender, supple. Absent: lymphadenopathy (R), lymphadenopathy (L) Back Exam: Present: normal inspection, no CVA tenderness, no vertebral tenderness Respiratory: Present: lungs clear, no respiratory distress, no accessory muscle use, No wheezing. Absent: crackles, rhonchi Cardiovascular/Chest: Present: normal peripheral pulses, regular rate, rhythm, no edema, no murmur Peripheral Pulses: dorsalis-pedis (R): 1+, dorsalis-pedis (L): 1+ Abdomen: Present: Normal bowel sounds, soft, nontender Extremity: Present: no pedal edema Skin Exam: Present: warm/dry, other - Ecchymosis on bilateral upper and lower extremities. Laceration on left forehead and left and anterior lower leg Neurologic: Present: alert, normal mood/affect Appearance: Present: appropriate appearance Eye contact: Present: cooperative Thoughts: Present: normal mood /affect Diagnostic Studies: Abnormal Lab Results 06/02/20 06/02/20 Range/Units 11:09 11:09 RBC 3.97 L (4.2-5.4) M/mm3 Hgb 10.5 L (12.5-16.0) gm/dL Hct 34.4 L (37.0-47.0) % MCH 26.4 L (27-31) pg MCHC 30.5 L (32-36) g/dl RDW 15.5 H (11.5-14.0) % Neutrophils % 80.3 H (42-75.0) % Lymphocytes % 10.8 L (20-51) % Lymphocytes # 0.80 L (1.5-3.5) k/mm3 Est GFR (Non-Af Amer) 58 L (60-130) mL/min Random Glucose 126 H (70-110) mg/dL Alkaline Phosphatase 40 L (50-170) U/L Laboratory Results WBC 7.4 K/mm3 (4.0-10.5) D 06/02/20 11:09 RBC 3.97 M/mm3 (4.2-5.4) L 06/02/20 11:09 Hgb 10.5 gm/dL (12.5-16.0) L 06/02/20 11:09 Hct 34.4 % (37.0-47.0) L 06/02/20 11:09 MCV 86.6 fl (78-100) 06/02/20 11:09 MCH 26.4 pg (27-31) L 06/02/20 11:09 MCHC 30.5 g/dl (32-36) L 06/02/20 11:09 RDW 15.5 % (11.5-14.0) H 06/02/20 11:09 Plt Count 217 K/mm3 (150-450) 06/02/20 11:09 MPV 8.8 fl (8-12.5) 06/02/20 11:09 Immature Gran % (Auto) 0.40 % (0.001-0.429) 06/02/20 11:09 Immature Gran # (Auto) 0.03 K/mm3 (0.000-0.0310) 06/02/20 11:09 Neutrophils % 80.3 % (42-75.0) H 06/02/20 11:09 Lymphocytes % 10.8 % (20-51) L 06/02/20 11:09 Monocytes % 7.8 % (0.0-9) 06/02/20 11:09 Eosinophils % 0.4 % (0.0-3.0) 06/02/20 11:09 Basophils % 0.3 % (0.0-1.0) 06/02/20 11:09 Nucleated RBC % 0.0 k/mm3 (0-1) 06/02/20 11:09 Neutrophils # 5.9 K/mm3 (1.3-6.0) 06/02/20 11:09 Lymphocytes # 0.80 k/mm3 (1.5-3.5) L 06/02/20 11:09 Monocytes # 0.6 k/mm3 (0.0-1.0) 06/02/20 11:09 Eosinophils # 0.0 k/mm3 (0.0-0.7) 06/02/20 11:09 Absolute Basophils 0.0 k/mm3 (0.0-0.1) 06/02/20 11:09 Sodium 137 mmol/L (132-142) 06/02/20 11:09 Plasma Sodium 137 mmol/L (130-142) 06/02/20 11:09 Potassium 4.1 mmol/L (3.4-4.6) 06/02/20 11:09 Chloride 104 mmol/L (97-106) 06/02/20 11:09 Carbon Dioxide 28.2 mmol/L (24-32.6) 06/02/20 11:09 Anion Gap 8.9 mmol/L (6.8-13.8) 06/02/20 11:09 BUN 18 mg/dL (3-23) 06/02/20 11:09 Creatinine 0.98 mg/dL (0.4-1.4) 06/02/20 11:09 Est GFR (Non-Af Amer) 58 mL/min (60-130) L 06/02/20 11:09 BUN/Creatinine Ratio 18.4 (9.0-21.6) 06/02/20 11:09 Random Glucose 126 mg/dL (70-110) H 06/02/20 11:09 Calcium 8.9 mg/dL (7.9-10.9) 06/02/20 11:09 Calcium Adj for Albumin 9.1 mg/dL (8.4-10.2) 06/02/20 11:09 Total Bilirubin 0.3 mg/dL (0.0-1.1) 06/02/20 11:09 AST 21 U/L (0-48) 06/02/20 11:09 ALT 23 U/L (19-67) 06/02/20 11:09 Alkaline Phosphatase 40 U/L (50-170) L 06/02/20 11:09 Total Protein 6.3 gm/dL (6.2-8.2) 06/02/20 11:09 Albumin 3.4 gm/dl (3.4-5.0) 06/02/20 11:09 Assessment/Plan - Narrative Narrative: 80-year-old female with a past medical history of atrial fibrillation on Xarelto, congestive heart failure, breast cancer, hyperlipidemia, chronic right knee pain, osteoporosis, mild cognitive impairment presents from home status post fall while rushing to get into her house. She states she tripped over the front steps and hit her head. She called her sister who came to help her up and she was brought to the emergency department. In the ER she was found to have hemoglobin of 10.5 and hematocrit of 34.4. Baseline hemoglobin runs 11.9-12.9. Bilateral leg x-rays were negative for fracture, CT chest showed no acute traumatic abnormality, cervical CT showed no cervical fracture, CT head showed a subtle minimally displaced fracture involving the superior medial left orbit extending into the adjacent floor of the left frontal sinus, associated fluid/hemorrhage within the left frontal sinus in addition to some associated supra orbital and periorbital gas on the left, small amount of dependent fluid/hemorrhage within the left maxillary sinus. She sustained two lacerations that were stitched/stapled up in the emergency department. Due to her history of Xarelto use and the low hemoglobin she was admitted for observation. Plan #1 repeat CBC in the morning #2 resume home medications and hold Xarelto for now #3 Ice pack to her right knee and left eye #4 Tylenol as needed for pain
[2020-06-02] MEDS ORDERED: DILTIAZEM HCL 240 MG CAP.SR.24H PO SCH (20:00)
[2020-06-02] MEDS: ACETAMINOPHEN 500 MG TABLET PO PRN (20:19)
[2020-06-02] MEDS: FLECAINIDE ACETATE 100 MG TABLET PO SCH (20:19)
[2020-06-02] MEDS: CALCIUM CARBONATE 500 MG TAB.CHEW PO SCH (20:19)
[2020-06-03] MEDS: ACETAMINOPHEN 500 MG TABLET PO PRN (02:59)
[2020-06-03 06:24] LABS: Hematocrit 29.3 % (37.0-47.0); Mean Cell Volume 86.7 fl (78-100); Mean Corpuscular Hemoglobin 26.6 pg (27-31); Mean Corpuscular Hgb Conc 30.7 g/dl (32-36); Neutrophil # 4.3 K/mm3 (1.3-6.0); Neutrophil % 71.9 % (42-75.0); Platelet Count 191 K/mm3 (150-450); Red Blood Count 3.38 M/mm3 (4.2-5.4); Red Cell Distribution Width 15.9 % (11.5-14.0); White Blood Count 5.9 K/mm3 (4.0-10.5)
[2020-06-03] MEDS ORDERED: CHOLECALCIFEROL 1,000 UNIT CAPSULE PO SCH (09:00)
[2020-06-03] MEDS ORDERED: TAMOXIFEN CITRATE 10 MG TABLET PO SCH (09:00)
[2020-06-03] MEDS: FLECAINIDE ACETATE 100 MG TABLET PO SCH (09:50)
[2020-06-03] MEDS: CALCIUM CARBONATE 500 MG TAB.CHEW PO SCH (09:50)
--- NOTE | 2020-06-03 10:15 | DS ---
(1) Anemia Problem: Acute (2) Facial trauma Problem: Acute Qualifiers: Encounter type: initial encounter Qualified Code(s): S09.93XA - Unspecified injury of face, initial encounter (3) Lacerations of multiple sites without complication Problem: Acute (4) Orbital fracture Problem: Acute Qualifiers: Encounter type: initial encounter Fracture type: closed Qualified Code(s): S02.85XA - Fracture of orbit, unspecified, initial encounter for closed fracture (5) CHF (congestive heart failure) Problem: Chronic (6) Mild cognitive impairment Problem: Chronic (7) Paroxysmal atrial fibrillation Problem: Chronic Date of Discharge:: 06/03/20 Hospital Course: 80-year-old female with a past medical history of atrial fibrillation on Xarelto, congestive heart failure, breast cancer, hyperlipidemia, chronic right knee pain, osteoporosis, mild cognitive impairment presents from home status post fall while rushing to get into her house. She states she tripped over the front steps and hit her head. She called her sister who came to help her up and she was brought to the emergency department. In the ER she was found to have hemoglobin of 10.5 and hematocrit of 34.4. Baseline hemoglobin runs 11.9-12.9. Bilateral leg x-rays were negative for fracture, CT chest showed no acute traumatic abnormality, cervical CT showed no cervical fracture, CT head showed a subtle minimally displaced fracture involving the superior medial left orbit extending into the adjacent floor of the left frontal sinus, associated fluid/hemorrhage within the left frontal sinus in addition to some associated supra orbital and periorbital gas on the left, small amount of dependent fluid/hemorrhage within the left maxillary sinus. She sustained two lacerations that were stitched/stapled up in the emergency department. Due to her history of Xarelto use and the low hemoglobin she was admitted for observation. Her hemoglobin dropped slightly from 10.5 to 9 which was expected with the history of Xarelto use and the blood loss she experienced in the ER. Xarelto has been held since admission. I will repeat a CBC when she follows up with me in 1 to 2 weeks. Restart Xarelto tomorrow June 04, 2020 She is feeling well today and is stable to be discharged home. Continue with Tylenol as needed for pain up to 3000 mg daily. She has a history of mild cognitive impairment and had been on donepezil in the past. This had been discontinued per her request. She would like to restart it. I will restart her on donepezil 5 mg daily. She is stable for discharge home today. Procedures Performed: none Results and Findings: Lab Pending Results 06/02/20 11:09: WBC 7.4 D, RBC 3.97 L, Hgb 10.5 L, Hct 34.4 L, MCV 86.6, MCH 26.4 L, MCHC 30.5 L, RDW 15.5 H, Plt Count 217, MPV 8.8, Immature Gran % (Auto) 0.40, Immature Gran # (Auto) 0.03, Neutrophils % 80.3 H, Lymphocytes % 10.8 L, Monocytes % 7.8, Eosinophils % 0.4, Basophils % 0.3, Nucleated RBC % 0.0, Neutrophils # 5.9, Lymphocytes # 0.80 L, Monocytes # 0.6, Eosinophils # 0.0, Absolute Basophils 0.0 06/02/20 11:09: Sodium 137, Plasma Sodium 137, Potassium 4.1, Chloride 104, Carbon Dioxide 28.2, Anion Gap 8.9, BUN 18, Creatinine 0.98, Est GFR (Non-Af Amer) 58 L, BUN/Creatinine Ratio 18.4, Random Glucose 126 H, Calcium 8.9, Calcium Adj for Albumin 9.1, Total Bilirubin 0.3, AST 21, ALT 23, Alkaline Phosphatase 40 L, Total Protein 6.3, Albumin 3.4 06/03/20 06:00: WBC 5.9 D, RBC 3.38 L, Hgb 9.0 L, Hct 29.3 L, MCV 86.7, MCH 26.6 L, MCHC 30.7 L, RDW 15.9 H, Plt Count 191, MPV 9.0, Immature Gran % (Auto) 0.20, Immature Gran # (Auto) 0.01, Neutrophils % 71.9, Lymphocytes % 14.4 L, Monocytes % 12.5 H, Eosinophils % 0.7, Basophils % 0.3, Nucleated RBC % 0.0, Neutrophils # 4.3, Lymphocytes # 0.85 L, Monocytes # 0.7, Eosinophils # 0.0, Absolute Basophils 0.0 Discharge Location: Home Disposition: Home self-care Condition: Stable Discharge Activity: Activity as tolerated Discharge Diet: Low salt Referrals: Marissa Gilbert MD [Primary Care Provider] - Additional Patient Instructions (free text): No driving until you see Dr Gilbert again at your follow up appointment. She has some mild memory impairment. I will restart her on donepezil 5 mg daily per her request. Follow-up with me in 1 to 2 weeks with a repeat CBC prior to her appointment. Use ice for right knee pain for 10 minutes 3 times a day. Use Tylenol as needed for pain up to 3000 mg in 1 day. Continue to hold Xarelto tonight and restart Xarelto on June 04, 2020 Prescriptions (Any new or edited meds): Donepezil HCl [Aricept] 5 mg PO DAILY #30 tab Transmission Status: Pending to [facility] Mail Delivery Complete Home Medications List: Complete Home Medication List: [place]-3 Fatty Acids/Fish Oil [Fish Oil 1,000 mg Capsule] 1 ea PO DAILY 11/16/17 tamoxifen 20 mg tablet 20 mg PO DAILY 08/21/19 diltiazem HCl 240 mg capsule,extended release 24 hr, controlled 240 mg PO DAILY@2000 #90 cap 04/16/20 flecainide 100 mg tablet 100 mg PO BID #180 tab 04/16/20 Calcium Carbonate 600 mg PO BID 06/02/20 Cholecalciferol [Vitamin D] 2,000 unit PO DAILY 06/02/20 Rivaroxaban [Xarelto] 20 mg PO .QSUPPER 06/02/20 Donepezil HCl [Aricept] 5 mg PO DAILY #30 tab 06/03/20 Forms: Patient Portal Registration
[2020-06-03 13:18] VITALS: BP 119/52
== END 2020-06-03 13:30 | disposition home or self-care (01) ==
LOC: ER 10:44 → MS 10:44
PROVIDERS: ADMIT Internal Medicine; ATTEND Internal Medicine
DX: F06.8 Other specified mental disorders due to known physiological condition; Z79.01 Long term (current) use of anticoagulants; S60.222A Contusion of left hand, initial encounter; W10.8XXA Fall (on) (from) other stairs and steps, initial encounter; I50.9 Heart failure, unspecified; S01.81XA Laceration without foreign body of other part of head, initial encounter; S50.12XA Contusion of left forearm, initial encounter; Y92.008 Other place in unspecified non-institutional (private) residence as the place of occurrence of the external cause; D64.9 Anemia, unspecified; S02.832A Fracture of medial orbital wall, left side, initial encounter for closed fracture; M81.0 Age-related osteoporosis without current pathological fracture; S81.811A Laceration without foreign body, right lower leg, initial encounter; S81.812A Laceration without foreign body, left lower leg, initial encounter; I48.0 Paroxysmal atrial fibrillation; S02.32XA Fracture of orbital floor, left side, initial encounter for closed fracture; E78.5 Hyperlipidemia, unspecified
CPT/HCPCS: 12004; 12011; 36415; 70450; 70486; 71260; 72125; 73590; 80053; 85025; 90471; 90715; 99284; 99285; G0378; Q9967